=== PATIENT | female | born 2000 | race Caucasian/White ===

== ENCOUNTER 2022-03-10 15:09 | Inpatient (IN) | payer MEDICAID, SELFPAY ==
--- NOTE | ~2022-03-10 | CT_ITS ---
EXAMINATION: CT ABDOMEN AND PELVIS WITH CONTRAST CLINICAL INFORMATION: Right flank pain. COMPARISON: None TECHNIQUE: Multidetector volumetric images were obtained from the superior aspect of the liver through the pubic symphysis following administration 85 mL of Omnipaque 350 intravenous contrast. Sagittal and coronal reformatted images were obtained on the technologist's workstation. Oral contrast: No This CT examination was performed using dose optimization techniques as appropriate, variously including the following: *Automated exposure control *Adjustment of mA and/or kV according to patient size (this includes techniques or standardized protocols for targeted exams where dose is matched to indication/reason for exam; i.e. extremities or head) *Use of iterative reconstruction technique DLP: 613 mGy-cm FINDINGS: LUNG BASES: The visualized lung bases are unremarkable. LIVER, GALLBLADDER, AND BILIARY TREE: The liver is enlarged measuring 21.2 cm in craniocaudal length. Diffuse hepatic hypoattenuation consistent with steatosis. No liver lesion. No morphologic features of cirrhosis. Hepatic and portal veins are patent. The gallbladder is unremarkable with no evidence of radiopaque gallstones, gallbladder wall thickening, or obvious pericholecystic inflammatory changes. PANCREAS: Unremarkable. SPLEEN: Unremarkable. ADRENAL GLANDS: Unremarkable. KIDNEYS AND URETERS: Wedge-shaped areas of hypoattenuation/diminished perfusion in both kidneys involving the left midpole and right mid and lower poles. No discrete renal lesion. Mild bilateral perinephric fat stranding. No perinephric collections. Bilateral renal veins are patent. No hydronephrosis. No radiodense urinary tract calculi. BLADDER: Diffusely thick-walled appearance likely accentuated by incomplete distention. GASTROINTESTINAL TRACT: The small and large bowel are unremarkable. The appendix is unremarkable. No intra-abdominal free air. ABDOMINAL WALL: No significant hernia is appreciated. LYMPH NODES: No lymphadenopathy. VASCULAR: Normal caliber abdominal aorta. Retroaortic left renal vein. PELVIC VISCERA: Retroflexed the uterus. Small amount of low-density free pelvic fluid. 1.6 cm peripherally enhancing crenulated left corpus luteal cyst. OSSEOUS STRUCTURES: No acute fracture or suspicious osseous lesion. CT/CT abdomen pelvis w IV con IMPRESSION: 1. Wedge-shaped areas of decreased perfusion/enhancement of both kidneys consistent with acute focal pyelonephritis/acute lobar nephronia. No well-formed renal abscess identified. 2. Hepatomegaly and hepatic steatosis.
[2022-03-10 15:21] VITALS: BP 127/83; PULSE 115; RESP 20; O2SAT 99; BMI 32.1
[2022-03-10 16:01] LABS: Appearance Urine Turbid; Color Urine Dark Yellow; Glucose Urine UA >=1000 mg/dL (Negative); Leukocyte Esterase Urine Moderate (2+) (Negative); Nitrite Urine Positive (Negative); PH 5.5 (5.0-9.0); Urine Blood Moderate (2+) (Negative); Urine Ketones 80 mg/dL (Negative); Urine Protein 100 (2+) mg/dL (Neg-Trace)
[2022-03-10 16:16] LABS: Bacteria Urine 4+ (None Seen); UACC Culture Trigger YES; WBC Urine >50 /HPF (0-5)
--- NOTE | 2022-03-10 16:37 | ED_ITS ---
HPI - Abdominal Pain General Chief Complaint: Abdominal Pain Stated Complaint: Abdominal Pain ?[facility] Time Seen by Provider: 03/10/22 16:29 Source: patient Mode of arrival: ambulatory Limitations: no limitations History of Present Illness HPI narrative: This is a 21-year-old female past medical history significant for anxiety, presenting to the emergency department complaints of severe right-sided flank pain x2 days progressively worsening. Patient tells me that she is also experiencing urinary frequency, dysuria, again started 2 days ago. She tells me last time she had these symptoms she had a bad UTI. Patient reports that the pain is constant in nature located to her right flank, without radiation, she tells me at times she has intermittent episodes of more severe pain, sharp, stabbing. Vague complaints of nausea. Patient denies fevers, chills, chest pain, shortness of breath, vomiting, abdominal pain, headache, dizziness, vision changes. MD elicited complaint: flank pain Pertinent past history: past UTI Onset (ago): day(s) (2) Pain Consistency: constant Related Data Allergies Allergy/AdvReac Type Severity Reaction Status Date / Time No Known Allergies Allergy Verified 03/10/22 18:32 Review of Systems Review of Systems Constitutional : No Weight loss, No Fever, No Chills, No Fatigue, No Malaise ENT/Mouth : No sore throat, No Rhinorrhea Eyes: No Eye Pain, No Swelling, No Redness Cardiovascular : No Chest Pain, No SOB, No Dyspnea on Exertion, No Orthopnea, No Edema, No Palpitations Respiratory : No Cough, No Sputum, No Wheezing Gastrointestinal : No Nausea, No Vomiting, No Diarrhea, No Constipation, No abdominal Pain, No Hematochezia, No Melena Genitourinary : + Dysuria, + Urinary Frequency, No Hematuria, Musculoskeletal : No joint pain, No Myalgias, No Joint Swelling Skin : No Skin Lesions, No rash Neuro : No Weakness, No Numbness, No Dizziness, No Headache Psych : No Anxiety/Panic, No Depression All other systems reviewed and are negative Yes all other systems are reviewed and are negative [facility] Past Medical History Attestation statement: The following information was validated with the patient. Source: old records reviewed and nursing notes reviewed Medical History (Updated 03/10/22 @ 18:37 by Kate Hartmann RN) No known health problems Social History Social History Patient Tobacco Use Status: Never used Tobacco Use of substances other than those prescribed or required for medical reasons: No Advance Directives: No Advance Directives Information Provided: No Patient : No Physical Exam ED Vital Signs: Vital Signs - 24 hr 03/10/22 15:21 03/10/22 18:35 Temperature 100.4 F Pulse Rate 115 H 120 H Respiratory Rate 20 16 Blood Pressure 127/83 139/79 Pulse Oximetry 99 99 Oxygen Delivery Method Room Air Room Air BMI result Body Mass Index 32.1 vss Appearance: Alert.? Oriented X3.? No acute distress.? Head: Normocephalic, atraumatic, no step-offs or deformities Eyes: Pupils equal, round and reactive to light.? ENT: Pharynx normal.? Neck: Normal inspection.? Neck supple.? CVS: Normal heart rate and rhythm.? Pulses normal.? Respiratory: No respiratory distress.? Breath sounds normal.? Abdomen: Soft and nontender.? Skin: Skin warm and dry.? Normal skin color.? Normal skin turgor.? Extremities: No lower extremity edema.? No calf ttp. 5/5 strength to bilateral upper and lower extremities Back: + right sided cva tenderness Neuro: Oriented X 3.? No motor deficit.? No sensory deficit. CN 2-12 intact Course Reevaluation(s) Reevaluation #1: Patient noted to have a leukocytosis, likely secondary to UTI or pyelonephritis. I do not suspect sepsis. Patient noted to have a urinary tract infection, urine positive for blood, nitrates, leukocyte esterases. Pending CT of the abdomen and pelvis to rule out obstructing uropathy. And pyelonephritis. Time: 18:28 Reevaluation #2: Patient now tachycardic and febrile, at this time infection suspected will obtain blood cultures, lactic acid and give levofloxacin for antibiotic coverage. Time: 18:42 Reevaluation #3: Patient's lactic acid is negative. CT with evidence of pyelonephritis. At this time patient will be admitted to the hospitalist team for further evaluation and treatment. Time: 19:47 MDM - Abdominal Pain MDM Narrative Medical decision making narrative: 1630 21-year-old female presents with 2 days of urinary frequency, dysuria, right- sided flank pain. Reports similar symptoms in the past when she had a UTI. Physical examination significant for right-sided CVA tenderness, regular rate and rhythm, lungs clear, abdomen soft nontender nondistended, neuro nonfocal. Vital signs stable. Concerns for pyelo or urinary tract infection. No midline tenderness, unlikely epidural abscess or cauda equina. Will rule out obstructing uropathy. Plan at this time is labs, urine, CT of the abdomen and pelvis Medical Records Attestation: I reviewed the patient's medical records. Lab Data Attestation: I reviewed the patient's lab results. Result diagrams: 03/10/22 18:10 03/10/22 18:10 Labs: Lab Results 03/10/22 03/10/22 03/10/22 Range/Units 15:45 18:10 18:10 WBC 15.7 H (4.8-10.8) X10*3/uL RBC 4.86 (4.20-5.50) X10*6/uL Hgb 15.4 (12.0-16.0) g/dl Hct 44.6 (37.0-47.0) % MCV 91.8 (80.0-98.0) fL MCH 31.7 (27.0-33.0) pg MCHC 34.5 (31.0-35.0) g/dl RDW 11.8 (11.0-16.0) % Plt Count 212 (160-400) X10*3/uL MPV 9.6 (9.4-12.3) fL Immature Gran % (Auto) 0.6 H (0.0-0.4) % Neut % (Auto) 75.9 H (45-73) % Lymph % (Auto) 11.7 L (20-40) % [place] % (Auto) 11.1 H (2-11) % Eos % (Auto) 0.3 (0-4) % Baso % (Auto) 0.4 (0-2) % Lymph # (Auto) 1.8 (1.2-4.9) X10*3/uL [place] # (Auto) 1.8 H (0.1-1.2) X10*3/uL Eos # (Auto) 0.0 (0.0-0.4) X10*3/uL Baso # (Auto) 0.1 (0.0-0.2) X10*3/uL Abs Immat Gran (auto) 0.09 H (0.00-0.03) X10*3/uL Absolute Neuts (auto) 11.9 H (2.0-8.3) x10*3/uL Absolute Nucleated RBC 0.000 (0.0-0.012) X10*3/uL Nucleated RBC % (auto) 0.0 (0.0-0.2) /100WBC Smear Tech's Comments VERIFIED Sodium 136 (135-145) mmol/L Potassium 3.7 (3.3-5.1) mmol/L Chloride 96 (96-108) mmol/L Carbon Dioxide 22 (22-29) mmol/L Anion Gap 22 H (12-20) BUN 8 L (9-16) mg/dL Creatinine 0.97 (0.5-1.4) mg/dL Estim Creat Clear Calc 86.9 Estimated GFR > 60 Random Glucose 269 H (60-115) mg/dL Lactic Acid (0.5-2.0) mmol/L Calcium 9.6 (8.4-10.2) mg/dL Magnesium 1.7 (1.6-2.6) mg/dL Total Bilirubin 1.8 H (0.0-1.0) mg/dL AST 30 (5-31) U/L ALT 50 H (0-31) U/L Alkaline Phosphatase 86 (39-117) U/L Total Protein 7.7 (6.5-8.0) g/dL Albumin 4.6 (3.5-5.0) g/dL Lipase 12 (8-78) U/L Beta HCG, Quant mIU/mL Urine Color Dark Yellow Urine Appearance Turbid Urine pH 5.5 (5.0-9.0) Ur Specific [place] 1.020 (1.005-1.025) Urine Protein 100 (2+) H (Neg-Trace) mg/dL Urine Glucose (UA) >=1000 H (Negative) mg/dL Urine Ketones 80 (Negative) mg/dL Urine Blood Moderate (2+) H (Negative) Urine Nitrite Positive H (Negative) Ur Leukocyte Esterase Moderate (2+) H (Negative) Urine RBC 3-5 H (0-2) /HPF Urine WBC >50 H (0-5) /HPF Ur Squamous Epith Cells 6-10 (0-2) /HPF Urine Bacteria 4+ (None Seen) Hyaline Casts 3-5 (0-2) /LPF COVID-19 (EZEKIEL) (Negative) COVID-19 Clin Com 03/10/22 03/10/22 03/10/22 Range/Units 18:10 18:10 19:18 WBC (4.8-10.8) X10*3/uL RBC (4.20-5.50) X10*6/uL Hgb (12.0-16.0) g/dl Hct (37.0-47.0) % MCV (80.0-98.0) fL MCH (27.0-33.0) pg MCHC (31.0-35.0) g/dl RDW (11.0-16.0) % Plt Count (160-400) X10*3/uL MPV (9.4-12.3) fL Immature Gran % (Auto) (0.0-0.4) % Neut % (Auto) (45-73) % Lymph % (Auto) (20-40) % [place] % (Auto) (2-11) % Eos % (Auto) (0-4) % Baso % (Auto) (0-2) % Lymph # (Auto) (1.2-4.9) X10*3/uL [place] # (Auto) (0.1-1.2) X10*3/uL Eos # (Auto) (0.0-0.4) X10*3/uL Baso # (Auto) (0.0-0.2) X10*3/uL Abs Immat Gran (auto) (0.00-0.03) X10*3/uL Absolute Neuts (auto) (2.0-8.3) x10*3/uL Absolute Nucleated RBC (0.0-0.012) X10*3/uL Nucleated RBC % (auto) (0.0-0.2) /100WBC Smear Tech's Comments Sodium (135-145) mmol/L Potassium (3.3-5.1) mmol/L Chloride (96-108) mmol/L Carbon Dioxide (22-29) mmol/L Anion Gap (12-20) BUN (9-16) mg/dL Creatinine (0.5-1.4) mg/dL Estim Creat Clear Calc Estimated GFR Random Glucose (60-115) mg/dL Lactic Acid 1.6 (0.5-2.0) mmol/L Calcium (8.4-10.2) mg/dL Magnesium (1.6-2.6) mg/dL Total Bilirubin (0.0-1.0) mg/dL AST (5-31) U/L ALT (0-31) U/L Alkaline Phosphatase (39-117) U/L Total Protein (6.5-8.0) g/dL Albumin (3.5-5.0) g/dL Lipase (8-78) U/L Beta HCG, Quant < 2 mIU/mL Urine Color Urine Appearance Urine pH (5.0-9.0) Ur Specific [place] (1.005-1.025) Urine Protein (Neg-Trace) mg/dL Urine Glucose (UA) (Negative) mg/dL Urine Ketones (Negative) mg/dL Urine Blood (Negative) Urine Nitrite (Negative) Ur Leukocyte Esterase (Negative) Urine RBC (0-2) /HPF Urine WBC (0-5) /HPF Ur Squamous Epith Cells (0-2) /HPF Urine Bacteria (None Seen) Hyaline Casts (0-2) /LPF COVID-19 (EZEKIEL) Negative (Negative) COVID-19 Clin Com See Note Critical Care Time Critical Care Time Critical Care Time: No Discharge Plan Discharge Clinical Impression: Pyelonephritis Patient Disposition: Admitted As Inpatient Instructions: Kidney Infection (ED), Acute Low Back Pain (ED) Referrals: Physician,Unknown J [Primary Care Provider] - 2 days
[2022-03-10] MEDS: LORazepam 0.5 MG TABLET PO (16:59)
--- NOTE | 2022-03-10 17:02 | PC.NURSE ---
PT TEARFUL, VERY ANXIOUS ABOUT NEEDLESTICKS. PA AWARE. WILL RE ATTEMPT AFTER EFFECTS OF PO ATIVAN
[2022-03-10 18:21] LABS: Basophils Absolute Auto 0.1 X10*3/uL (0.0-0.2); Basophils Percent Auto 0.4 % (0-2); Eosinophils Percent Auto 0.3 % (0-4); Hematocrit 44.6 % (37.0-47.0); Hemoglobin 15.4 g/dl (12.0-16.0); Imm Gran Abs Auto 0.09 X10*3/uL (0.00-0.03); Imm Gran Pct Auto 0.6 % (0.0-0.4); Lymphocytes Absolute Auto 1.8 X10*3/uL (1.2-4.9); Lymphocytes Percent Auto 11.7 % (20-40); MANUAL DIFF FLAG SCAN; Mean Corpuscular HGB Conc 34.5 g/dl (31.0-35.0); Mean Corpuscular Hemoglobin 31.7 pg (27.0-33.0); Mean Corpuscular Volume 91.8 fL (80.0-98.0); Mean Platelet Volume 9.6 fL (9.4-12.3); Monocytes Absolute Auto 1.8 X10*3/uL (0.1-1.2); Monocytes Percent Auto 11.1 % (2-11); Neutrophils Absolute Auto 11.9 x10*3/uL (2.0-8.3); Neutrophils Percent Auto 75.9 % (45-73); Platelet Count 212 X10*3/uL (160-400); Red Blood Count 4.86 X10*6/uL (4.20-5.50); Red Cell Distribution Width 11.8 % (11.0-16.0); SCAN SMEAR FLAG 1; White Blood Count 15.7 X10*3/uL (4.8-10.8)
[2022-03-10] MEDS: 0.9 % Sodium Chloride 1,000 ML 999 ML IV ×2 (18:33→20:19)
[2022-03-10] MEDS: Ketorolac Tromethamine 15 MG/ML VIAL 30 MG IVPUSH (18:33)
[2022-03-10] MEDS: ondansetron HCL 4 MG/2 ML VIAL IVPUSH (18:33)
[2022-03-10 18:35] VITALS: BP 139/79; PULSE 120; RESP 16; TEMP 38; O2SAT 99
[2022-03-10 18:36] LABS: COVID-19 Test Negative (Negative)
[2022-03-10 18:43] LABS: Alanine Aminotransferase 50 U/L (0-31); Albumin Level 4.6 g/dL (3.5-5.0); Alkaline Phosphatase 86 U/L (39-117); Anion Gap 22 (12-20); Aspartate Amino Transferase 30 U/L (5-31); Bilirubin Total 1.8 mg/dL (0.0-1.0); Blood Urea Nitrogen 8 mg/dL (9-16); Calcium 9.6 mg/dL (8.4-10.2); Carbon Dioxide 22 mmol/L (22-29); Chloride 96 mmol/L (96-108); Creatinine Clr Calc Pharmacy 86.9; Estimated Glomerular Filt Rate > 60; Glucose Random 269 mg/dL (60-115); Lipase 12 U/L (8-78); Magnesium 1.7 mg/dL (1.6-2.6); Potassium 3.7 mmol/L (3.3-5.1); Sodium 136 mmol/L (135-145); Total Protein 7.7 g/dL (6.5-8.0)
[2022-03-10 18:47] LABS: HCG Quantitative < 2 mIU/mL
[2022-03-10 18:52] LABS: SLIDE REVIEW VERIFIED
[2022-03-10] MEDS: iohexoL 350 MG/ML 100 ML INFUS..BTL IV (19:11)
[2022-03-10] MEDS: levoFLOXacin/D5W 750 MG/150 ML PIGGYBACK 100 MG IV (19:29)
[2022-03-10] MEDS: Acetaminophen 325 MG TABLET 650 MG PO (19:29)
[2022-03-10 19:37] LABS: Lactic Acid 1.6 mmol/L (0.5-2.0)
--- NOTE | 2022-03-10 19:56 | PHA.MEDREC ---
MED REC COMPLETE, PATIENT IS NOT ON ANY MEDICATIONS Pharmacy Consult ? Medication Reconciliation Pharmacy has completed the medication reconciliation.
[2022-03-10] MEDS: Morphine Sulfate 4 MG/ML CARTRIDGE IVPUSH (20:19)
--- NOTE | 2022-03-10 20:20 | PM.IMHP ---
History of Present Illness Date of Service: 03/10/22 Chief Complaint: left kidney pain This is a 21-year-old female with past medical history of asthma presents to the hospital with complaints of left kidney pain. Patient reports that her symptoms started about 3 days ago, associated with urinary frequency, no dysuria or urgency. She has also had chills that started today, she has had nausea and vomiting. No fever, no chest pain, no shortness of breath, no wheezing, no abdominal pain, no diarrhea constipation, and no lower extremity edema. No headache or change in vision, no numbness tingling or weakness. On arrival to the ED patient hemodynamically stable with a heart rate of 115 otherwise vitals within normal range Labs are significant for WBC count of 15.7, otherwise unremarkable UA is positive for nitrites, leukocyte Estrace, WBC CT of the abdomen shows acute pyelonephritis Patient started on IV antibiotics and will be admitted for further management Review of Systems Review of Systems: Yes all other systems are reviewed and are negative PENDING SALE TO [facility] Medical History (Updated 03/10/22 @ 20:36 by Emmett Estrella MD) Asthma Family History (Updated 03/10/22 @ 20:24 by Emmett Estrella MD) Other No family history of coronary artery disease Surgical History (Updated 03/10/22 @ 20:24 by Emmett Estrella MD) No pertinent past surgical history Social History (Updated 03/10/22 @ 20:24 by Emmett Estrella MD) Alcohol intake: never Patient Tobacco Use Status: Never used Tobacco Use of substances other than those prescribed or required for medical reasons: No Advance Directives: No Advance Directives Information Provided: No Patient : No Meds Allergies Allergy/AdvReac Type Severity Reaction Status Date / Time No Known Allergies Allergy Verified 03/10/22 18:32 Active Medications: Current Medications Sodium Chloride (Ns) 1,000 mls @ 999 mls/hr IV .Q1H1M STEFFEN Stop: 03/10/22 21:00 Last Admin: 03/10/22 20:19 Dose: 999 mls/hr Pharmacy Consult (Consult Rx Perform Med Rec) 1 each MISCELLANE ONCE PRN PRN Reason: Consult order Home Medications Medication Instructions Recorded Confirmed Last Taken Type No Known Home Meds 03/10/22 03/10/22 Unknown History Physical Exam Vital Signs and Narrative: Vital Signs: Last Vital Signs Temp 100.4 F 03/10/22 18:35 Pulse 120 H 03/10/22 18:35 Resp 16 03/10/22 18:35 BP 139/79 03/10/22 18:35 Pulse Ox 99 03/10/22 18:35 O2 Del Method 03/10/22 18:35 BMI result Body Mass Index 32.1 Const: Other: Patient appears anxious, ill, and is crying General: cooperative and no acute distress Orientation/consciousness: patient oriented x3 Eyes: General: appearance normal, both eyes and all related structures Resp: Effort & Inspection: normal respiratory effort Auscultation: clear to auscultation bilaterally Cardio: Rate: regular rate Rhythm: regular rhythm GI: Palpation (GI): Soft to palpation Auscultation: normal bowel sounds : Other: Left CVA tenderness Skin: General skin exam: no rashes or lesions noted Neuro: General: patient oriented x3 Cognition (Neuro): normal cognition Extrem: General: Yes normal to inspection and Yes no pedal edema Results Labs CBC and Chem 7: 03/10/22 18:10 03/10/22 18:10 Labs: Laboratory Results - last 24 hr 03/10/22 03/10/22 03/10/22 15:45 18:10 18:10 MCV 91.8 MCH 31.7 MCHC 34.5 RDW 11.8 Plt Count 212 MPV 9.6 Immature Gran % (Auto) 0.6 H Neut % (Auto) 75.9 H Lymph % (Auto) 11.7 L Sac % (Auto) 11.1 H Eos % (Auto) 0.3 Baso % (Auto) 0.4 Lymph # (Auto) 1.8 Sac # (Auto) 1.8 H Eos # (Auto) 0.0 Baso # (Auto) 0.1 Abs Immat Gran (auto) 0.09 H Absolute Neuts (auto) 11.9 H Absolute Nucleated RBC 0.000 Nucleated RBC % (auto) 0.0 Smear Tech's Comments VERIFIED Anion Gap 22 H Estim Creat Clear Calc 86.9 Estimated GFR > 60 Random Glucose 269 H Lactic Acid Calcium 9.6 Magnesium 1.7 Total Bilirubin 1.8 H AST 30 ALT 50 H Alkaline Phosphatase 86 Total Protein 7.7 Albumin 4.6 Lipase 12 Beta HCG, Quant Urine Color Dark Yellow Urine Appearance Turbid Urine pH 5.5 Ur Specific [place] 1.020 Urine Protein 100 (2+) H Urine Glucose (UA) >=1000 H Urine Ketones 80 Urine Blood Moderate (2+) H Urine Nitrite Positive H Ur Leukocyte Esterase Moderate (2+) H Urine RBC 3-5 H Urine WBC >50 H Ur Squamous Epith Cells 6-10 Urine Bacteria 4+ Hyaline Casts 3-5 COVID-19 (EZEKIEL) COVID-19 Clin Com 03/10/22 03/10/22 03/10/22 18:10 18:10 19:18 MCV MCH MCHC RDW Plt Count MPV Immature Gran % (Auto) Neut % (Auto) Lymph % (Auto) Sac % (Auto) Eos % (Auto) Baso % (Auto) Lymph # (Auto) Sac # (Auto) Eos # (Auto) Baso # (Auto) Abs Immat Gran (auto) Absolute Neuts (auto) Absolute Nucleated RBC Nucleated RBC % (auto) Smear Tech's Comments Anion Gap Estim Creat Clear Calc Estimated GFR Random Glucose Lactic Acid 1.6 Calcium Magnesium Total Bilirubin AST ALT Alkaline Phosphatase Total Protein Albumin Lipase Beta HCG, Quant < 2 Urine Color Urine Appearance Urine pH Ur Specific [place] Urine Protein Urine Glucose (UA) Urine Ketones Urine Blood Urine Nitrite Ur Leukocyte Esterase Urine RBC Urine WBC Ur Squamous Epith Cells Urine Bacteria Hyaline Casts COVID-19 (EZEKIEL) Negative COVID-19 Clin Com See Note Imaging Radiologist's Impressions: Impressions Abdomen/Pelvis CT 03/10/22 19:10 IMPRESSION: 1. Wedge-shaped areas of decreased perfusion/enhancement of both kidneys consistent with acute focal pyelonephritis/acute lobar nephronia. No well-formed renal abscess identified. 2. Hepatomegaly and hepatic steatosis. Assessment and Plan (1) Pyelonephritis: Status: Acute (2) Sepsis: Status: Acute Plan 21-year-old with past medical history of asthma presents to the hospital with complaints of left kidney pain found to have acute pyelonephritis # sepsis - secondary to pyelonephritis/UTI - has tachycardia, as well as leukocytosis - treat with IV antibiotic - follow cultures # acute pyelonephritis - CVA tenderness, CT evidence of pyelonephritis, UA positive - will treat with IV antibiotics - follow cultures - IV fluids # asthma - no exacerbation - monitor symptoms DVT prophylaxis: Lovenox Given patient's nausea and vomiting, not tolerating p.o., as well as sepsis and need for IV antibiotics patient will require a minimum 2 night hospital stay for further management and monitoring Quality Stroke Does the patient have a stroke diagnosis?: No VTE Prior VTE?: No VTE Risk Level:: Medical - moderate - high VTE Device Contraindication: Treatment Not Indicated VTE Drug Contraindication: N/A - Med Ordered
[2022-03-10 20:24] VITALS: BP 120/72; PULSE 116; RESP 16; TEMP 37.1; O2SAT 95
[2022-03-10] MEDS: Prochlorperazine Edisylate 10 MG/2 ML VIAL 5 MG IVPUSH (21:22)
[2022-03-10] MEDS: cefTRIAXone sodium 1 GM in 0.9 % Sodium Chloride 50 ML IV (21:26)
[2022-03-10 23:51] VITALS: BP 126/77; PULSE 135; RESP 20; TEMP 36.4; O2SAT 99
--- NOTE | 2022-03-11 00:21 | PC.NURSE ---
Assumed care of pt. at 2300. Pt. resting in bed. Pulse rate is elevated, which, is her baseline for this hospital stay. Pt. still feeling slightly nauseous, however, reports that this is significantly better than earlier today. Will continue to monitor.
[2022-03-11 01:34] VITALS: TEMP 38.2
[2022-03-11] MEDS: Acetaminophen 325 MG TABLET 650 MG PO ×3 (01:38→21:34)
[2022-03-11] MEDS: Lactated Ringers 1,000 ML 999 ML IV (01:49)
[2022-03-11] MEDS: 0.9 % Sodium Chloride Flush 3 ML SYRINGE IVFLUSH (01:50)
--- NOTE | 2022-03-11 01:51 | PC.NURSE ---
Pt. pulse continue to be elevating, reaching 150 at one point. notified and order placed for additional fluid. 1L of LR administered per SEP. Pt. medicated with tylenol for low-grade fever. Pt. also reports a high amount of anxiety as she is fearful of hospitals. Will continue to monitor.
[2022-03-11 02:45] LABS: Lactic Acid 1.4 mmol/L (0.5-2.0)
[2022-03-11 05:38] VITALS: BP 90/51; PULSE 95; RESP 27; O2SAT 95
[2022-03-11 06:09] VITALS: BP 107/63; PULSE 104; RESP 21; O2SAT 97
--- NOTE | 2022-03-11 06:10 | PC.NURSE ---
Pt. reports no pain this morning and reports she was able to get some sleep. Resting in bed with no apparent distress.
[2022-03-11 06:33] LABS: Basophils Percent Auto 0.2 % (0-2); Eosinophils Percent Auto 0.1 % (0-4); Hematocrit 35.7 % (37.0-47.0); Hemoglobin 12.2 g/dl (12.0-16.0); Imm Gran Abs Auto 0.13 X10*3/uL (0.00-0.03); Lymphocytes Absolute Auto 1.3 X10*3/uL (1.2-4.9); Lymphocytes Percent Auto 9.5 % (20-40); MANUAL DIFF FLAG SCAN; Mean Corpuscular HGB Conc 34.2 g/dl (31.0-35.0); Mean Corpuscular Hemoglobin 31.5 pg (27.0-33.0); Mean Corpuscular Volume 92.2 fL (80.0-98.0); Mean Platelet Volume 10.1 fL (9.4-12.3); Monocytes Absolute Auto 1.6 X10*3/uL (0.1-1.2); Monocytes Percent Auto 12.1 % (2-11); Neutrophils Absolute Auto 10.2 x10*3/uL (2.0-8.3); Neutrophils Percent Auto 77.1 % (45-73); Platelet Count 151 X10*3/uL (160-400); Red Blood Count 3.87 X10*6/uL (4.20-5.50); Red Cell Distribution Width 11.8 % (11.0-16.0); SCAN SMEAR FLAG 1; White Blood Count 13.2 X10*3/uL (4.8-10.8)
[2022-03-11 06:49] LABS: Anion Gap 16 (12-20); Blood Urea Nitrogen 7 mg/dL (9-16); Calcium 8.1 mg/dL (8.4-10.2); Carbon Dioxide 19 mmol/L (22-29); Chloride 104 mmol/L (96-108); Estimated Glomerular Filt Rate > 60; Glucose Random 345 mg/dL (60-115); Potassium 4.3 mmol/L (3.3-5.1); Sodium 135 mmol/L (135-145)
[2022-03-11 07:09] LABS: SLIDE REVIEW VERIFIED
--- NOTE | 2022-03-11 09:08 | PC.NURSE ---
pt asleep, this investment underwriter did not wake pt. pt assigned a room 363, this investment underwriter contacted receiving RN x2 awaiting response.
--- NOTE | 2022-03-11 09:23 | P.PNIM_ITS ---
Subjective Subjective Date of Service: 03/11/22 Interval History: Followed for pyelonephritis complaining of persistent left-sided back pain with no radiation, better since admission denies fever chills tolerating diet. Review of Systems MANUFACTURING INTERN no headache no dizziness CVS no chest pain respiratory no cough, no shortness of breath Review of Systems: Yes all other systems are reviewed and are negative Physical Exam Vital Signs: Vital Signs: Last Vital Signs Temp 100.7 F H 03/11/22 01:34 Pulse 104 H 03/11/22 06:09 Resp 21 H 03/11/22 06:09 BP 107/63 03/11/22 06:09 Pulse Ox 97 03/11/22 06:09 O2 Del Method 03/11/22 06:09 BMI result Body Mass Index 32.1 Const: Other: General awake alert x3, no acute distress. Neck no JVD. CVS regular rate rhythm, Respiratory lungs clear to auscultation, no respiratory distress, no wheeze, no rhonchi. Gastrointestinal abdomen soft, nontender, bowel sounds audible, no guarding , no rigidity. Extremities no edema. back left CVA tenderness Neuro nonfocal Skin no rash psych appropriate affect Objective Data Active Medications Acetaminophen (Acetaminophen 325 Mg Tablet) 650 mg PO Q6H PRN PRN Reason: Pain, Mild (Pain Scale 1-3) Last Admin: 03/11/22 01:38 Dose: 650 mg Documented By: STEVE Docusate Sodium (Docusate Sodium 100 Mg Capsule) 100 mg PO DAILY PRN PRN Reason: Constipation Enoxaparin Sodium (Enoxaparin Sodium 40 Mg/0.4 Ml Syringe) 40 mg SUBCUT Q24H [facility] Last Admin: 03/10/22 21:30 Dose: Not Given Documented By: ALONZO Non-Admin Reason: Patient Refused Ceftriaxone Sodium 1 gm/ (Sodium Chloride) 50 mls @ 100 mls/hr IV Q24H [facility] Last Infusion: 03/10/22 22:53 Dose: 0 mls/hr Documented By: ALONZO Morphine Sulfate (Morphine Sulfate 4 Mg/Ml Cartridge) 4 mg IVPUSH Q4H PRN; Protocol PRN Reason: Pain, Severe (Pain Scale 7-10) Pharmacy Consult (Consult Rx Perform Med Rec) 1 each MISCELLANE ONCE PRN PRN Reason: Consult order Prochlorperazine Edisylate (Prochlorperazine Edisylate 10 Mg/2 Ml Vial) 5 mg IVPUSH Q4H PRN PRN Reason: Nausea and Vomiting Last Admin: 03/10/22 21:22 Dose: 5 mg Documented By: ALONZO Sodium Chloride (0.9 % Sodium Chloride Flush 3 Ml Syringe) 3 ml IVFLUSH QSHIFT STEFFEN Last Admin: 03/11/22 07:35 Dose: Not Given Documented By: ZOYA Non-Admin Reason: Patient Asleep Labs CBC & Chem 7: 03/11/22 06:08 03/11/22 06:08 Labs: Laboratory Results - last 24 hr 03/10/22 03/10/22 03/10/22 15:45 18:10 18:10 MCV 91.8 MCH 31.7 MCHC 34.5 RDW 11.8 Plt Count 212 MPV 9.6 Immature Gran % (Auto) 0.6 H Neut % (Auto) 75.9 H Lymph % (Auto) 11.7 L [place] % (Auto) 11.1 H Eos % (Auto) 0.3 Baso % (Auto) 0.4 Lymph # (Auto) 1.8 [place] # (Auto) 1.8 H Eos # (Auto) 0.0 Baso # (Auto) 0.1 Abs Immat Gran (auto) 0.09 H Absolute Neuts (auto) 11.9 H Absolute Nucleated RBC 0.000 Nucleated RBC % (auto) 0.0 Smear Tech's Comments VERIFIED Anion Gap 22 H Estim Creat Clear Calc 86.9 Estimated GFR > 60 Random Glucose 269 H Lactic Acid Calcium 9.6 Magnesium 1.7 Total Bilirubin 1.8 H AST 30 ALT 50 H Alkaline Phosphatase 86 Total Protein 7.7 Albumin 4.6 Lipase 12 Beta HCG, Quant Urine Color Dark Yellow Urine Appearance Turbid Urine pH 5.5 Ur Specific [place] 1.020 Urine Protein 100 (2+) H Urine Glucose (UA) >=1000 H Urine Ketones 80 Urine Blood Moderate (2+) H Urine Nitrite Positive H Ur Leukocyte Esterase Moderate (2+) H Urine RBC 3-5 H Urine WBC >50 H Ur Squamous Epith Cells 6-10 Urine Bacteria 4+ Hyaline Casts 3-5 COVID-19 (EZEKIEL) COVID-19 Clin Com 03/10/22 03/10/22 03/10/22 18:10 18:10 19:18 MCV MCH MCHC RDW Plt Count MPV Immature Gran % (Auto) Neut % (Auto) Lymph % (Auto) [place] % (Auto) Eos % (Auto) Baso % (Auto) Lymph # (Auto) [place] # (Auto) Eos # (Auto) Baso # (Auto) Abs Immat Gran (auto) Absolute Neuts (auto) Absolute Nucleated RBC Nucleated RBC % (auto) Smear Tech's Comments Anion Gap Estim Creat Clear Calc Estimated GFR Random Glucose Lactic Acid 1.6 Calcium Magnesium Total Bilirubin AST ALT Alkaline Phosphatase Total Protein Albumin Lipase Beta HCG, Quant < 2 Urine Color Urine Appearance Urine pH Ur Specific [place] Urine Protein Urine Glucose (UA) Urine Ketones Urine Blood Urine Nitrite Ur Leukocyte Esterase Urine RBC Urine WBC Ur Squamous Epith Cells Urine Bacteria Hyaline Casts COVID-19 (EZEKIEL) Negative COVID-19 Clin Com See Note 03/11/22 03/11/22 03/11/22 02:30 06:08 06:08 MCV 92.2 MCH 31.5 MCHC 34.2 RDW 11.8 Plt Count 151 L D MPV 10.1 Immature Gran % (Auto) 1.0 H Neut % (Auto) 77.1 H Lymph % (Auto) 9.5 L [place] % (Auto) 12.1 H Eos % (Auto) 0.1 Baso % (Auto) 0.2 Lymph # (Auto) 1.3 [place] # (Auto) 1.6 H Eos # (Auto) 0.0 Baso # (Auto) 0.0 Abs Immat Gran (auto) 0.13 H Absolute Neuts (auto) 10.2 H Absolute Nucleated RBC 0.000 Nucleated RBC % (auto) 0.0 Smear Tech's Comments VERIFIED Anion Gap 16 Estim Creat Clear Calc 98.0 Estimated GFR > 60 Random Glucose 345 H Lactic Acid 1.4 Calcium 8.1 L D Magnesium Total Bilirubin AST ALT Alkaline Phosphatase Total Protein Albumin Lipase Beta HCG, Quant Urine Color Urine Appearance Urine pH Ur Specific [place] Urine Protein Urine Glucose (UA) Urine Ketones Urine Blood Urine Nitrite Ur Leukocyte Esterase Urine RBC Urine WBC Ur Squamous Epith Cells Urine Bacteria Hyaline Casts COVID-19 (EZEKIEL) COVID-19 Clin Com Microbiology Microbiology Results: Microbiology 03/10/22 15:45 Urine Culture - Preliminary Urine clean catch - Urine cao top Gram negative adonay Assessment and Plan (1) Sepsis: Status: Acute (2) Pyelonephritis: Status: Acute (3) Hyperglycemia, unspecified: Status: Acute Plan 21-year-old with past medical history of asthma presents to the hospital with complaints of left kidney pain found to have acute pyelonephritis # sepsis due to acute pyelonephritis - met sepsis criteria due to tachycardia and leukocytosis, persistent tachycardia, tachypnea, WBC trending down continue IV ceftriaxone day 2 urine culture growing Gram-negative adonay, blood cultures x2 pending # hyperglycemia blood sugars greater than 300 no history of diabetes will check hemoglobin A1c, average blood sugars not on D5W # asthma mild intermittent - no exacerbation - monitor symptoms DVT prophylaxis: Lovenox patient will need continued continued in patient's stay due to acute pyelonephritis / sepsis requiring antibiotic waiting for urine and blood cultures Quality Stroke Does the patient have a stroke diagnosis?: No VTE Prior VTE?: No VTE Risk Level:: Medical - moderate - high VTE Device Contraindication: Treatment Not Indicated VTE Drug Contraindication: N/A - Med Ordered
--- NOTE | 2022-03-11 09:28 | PC.NURSE ---
nurse to nurse report given to LI Medina. pt will be transferred to room 363 by transporter. pt aware of plan.
--- NOTE | 2022-03-11 09:29 | MHC.CM.PN ---
Patient lives in a house with her Parents and she is functionally independent. Home/no services is the goal and CM has initiated and will follow for dc planning.PCP is a new PCP for Patient from [facility] and Patient has received no Covid vax.
[2022-03-11 10:02] VITALS: BP 124/67; PULSE 98; RESP 18; TEMP 36.6; O2SAT 98
[2022-03-11 10:07] LABS: Glucose, Whole Blood 251 mg/dL (60-115)
[2022-03-11] MEDS: 0.9 % Sodium Chloride 1,000 ML 125 ML IVCONT ×2 (10:46→18:56)
[2022-03-11 16:00] VITALS: BP 120/66; PULSE 95; RESP 18; TEMP 36.3; O2SAT 98
[2022-03-11 20:00] VITALS: BP 127/81; PULSE 109; RESP 18; TEMP 36.6; O2SAT 98
[2022-03-11 20:30] LABS: Glucose, Whole Blood 242 mg/dL (60-115)
[2022-03-11] MEDS: cefTRIAXone sodium 1 GM in 0.9 % Sodium Chloride 50 ML IV (21:18)
--- NOTE | 2022-03-11 21:24 | PC.NURSE ---
Pt refused Lovenox,risk of DVT explained,encouraged activity,Dr. Estrella notified
[2022-03-12] VITALS (7 sets, daily range): BP systolic 124–142; BP diastolic 71–98; PULSE 86–110; RESP 16–18; TEMP 36.1–37; O2SAT 96–99
[2022-03-12] MEDS: Acetaminophen 325 MG TABLET 650 MG PO ×2 (09:49→16:54)
[2022-03-12] MEDS: 0.9 % Sodium Chloride Flush 3 ML SYRINGE IVFLUSH ×3 (09:52→23:55)
--- NOTE | 2022-03-12 10:25 | PC.NURSE ---
came out of room, and said that patient was hysterical crying because told her she was going to have to have blood sugars done. She is deathly afraid of needles. I went in and tried to console her, I talked to her about the importance of having her blood sugar done. I stayed with her for 30 minutes, trying to calm her down. I told her a sole stapler welt will come and talk to her and that oral hyperglycemic medication is not as affective as the injection. I also told her that we would not do anything she said she did not want. She was given 2 tylenol for a headache and calmed down. She is resting with the lights out when I left.
[2022-03-12] MEDS: Prochlorperazine Edisylate 10 MG/2 ML VIAL 5 MG IVPUSH (11:16)
--- NOTE | 2022-03-12 16:04 | HO.PM.IMPN ---
Subjective Subjective Date of Service: 03/12/22 Interval History: refusing blood draw due to fear of needles, patient is hysterical and crying, was told to be prediabetic couple years ago, blood sugar noted to be around 250, back pain is better no overnight fevers, no chills is nauseous and throwing due to crying and anxiety. Review of Systems Review of Systems: Yes all other systems are reviewed and are negative Physical Exam Vital Signs: Vital Signs: Last Vital Signs Temp 98.3 F 03/12/22 15:13 Pulse 98 03/12/22 15:13 Resp 18 03/12/22 15:13 BP 139/93 H 03/12/22 15:13 Pulse Ox 99 03/12/22 15:13 O2 Del Method 03/12/22 15:13 BMI result Body Mass Index 32.1 Const: Other: General? awake alert x3, In distress due to fear of needles? Neck no JVD. CVS? regular rate rhythm, Respiratory lungs clear to auscultation, no respiratory distress, no wheeze, no rhonchi. Gastrointestinal abdomen soft, nontender, bowel sounds audible, no guarding , no rigidity. Extremities no? edema. back no CVA tenderness Neuro nonfocal Skin no rash psych anxious Objective Data Active Medications Acetaminophen (Acetaminophen 325 Mg Tablet) 650 mg PO Q6H PRN PRN Reason: Pain, Mild (Pain Scale 1-3) Last Admin: 03/12/22 09:49 Dose: 650 mg Documented By: RAFI Dextrose (Dextrose 50 % 25 Gm/50 Ml Syringe) 25 gm IVPUSH Q15M PRN; Protocol PRN Reason: per Hypoglycemia Standing Ord. Docusate Sodium (Docusate Sodium 100 Mg Capsule) 100 mg PO DAILY PRN PRN Reason: Constipation Enoxaparin Sodium (Enoxaparin Sodium 40 Mg/0.4 Ml Syringe) 40 mg SUBCUT Q24H [facility] Last Admin: 03/11/22 21:18 Dose: Not Given Documented By: RYAN Non-Admin Reason: Patient Refused Glucose (Glucose Gel 15 Gm Gel..Gram.) 15 gm PO Q15M PRN; Protocol PRN Reason: per Hypoglycemia Standing Ord. Ceftriaxone Sodium 1 gm/ (Sodium Chloride) 50 mls @ 100 mls/hr IV Q24H [facility] Last Infusion: 03/11/22 22:01 Dose: 0 mls/hr Documented By: RYAN Insulin Human Lispro (Insulin Lispro 100 Unit/Ml 3 Ml Vial) 0 unit SUBCUT QIDACHS [facility]; Protocol Last Admin: 03/12/22 12:50 Dose: Not Given Documented By: RAFI Non-Admin Reason: Patient Refused Morphine Sulfate (Morphine Sulfate 4 Mg/Ml Cartridge) 4 mg IVPUSH Q4H PRN; Protocol PRN Reason: Pain, Severe (Pain Scale 7-10) Pharmacy Consult (Consult Rx Perform Med Rec) 1 each MISCELLANE ONCE PRN PRN Reason: Consult order Prochlorperazine Edisylate (Prochlorperazine Edisylate 10 Mg/2 Ml Vial) 5 mg IVPUSH Q4H PRN PRN Reason: Nausea and Vomiting Last Admin: 03/12/22 11:16 Dose: 5 mg Documented By: RAFI Sodium Chloride (0.9 % Sodium Chloride Flush 3 Ml Syringe) 3 ml IVFLUSH [facility] Last Admin: 03/12/22 09:52 Dose: 3 ml Documented By: RAFI Labs CBC & Chem 7: 03/11/22 06:08 03/11/22 06:08 Labs: Laboratory Results - last 24 hr 03/11/22 20:20 POC Glucose 242 H Microbiology Microbiology Results: Microbiology 03/10/22 19:18 Blood Culture - Preliminary Blood - Venous Gram negative adonay 03/10/22 15:45 Urine Culture - Final Urine clean catch - Urine cao top Escherichia coli 03/10/22 19:18 Blood Culture - Preliminary Blood - Venous No growth after 24 hours. Assessment and Plan (1) Sepsis: Status: Acute (2) Pyelonephritis: Status: Acute (3) Hyperglycemia, unspecified: Status: Acute Plan 21-year-old with past medical history of asthma presents to the hospital with complaints of left kidney pain found to have acute pyelonephritis # sepsis due to acute pyelonephritis met sepsis criteria due to tachycardia and leukocytosis, persistent tachycardia, WBC trending down continue IV ceftriaxone day 3 urine culture lobito E coli, ESBL negative sensitive to ceftriaxone, blood cultures 1/2 positive for Gram-negative rods, follow final sensitivity # new onset diabetes mellitus, elevated blood sugars, patient refusing lab draws question insulin was is non insulin-dependent diabetes since known to be prediabetic for last few years, no family history of diabetes will obtain psych eval for fear of needles, will re-attempt lab draws at a.m. case discussed with mom at bedside, will place on metformin and recommend outpatient endocrinology for further workup will obtain nutrition consult, strongly recommend to follow diabetic diet, check hemoglobin A1c, average blood sugars # asthma mild intermittent - no exacerbation - monitor symptoms DVT prophylaxis: Lovenox patient will need continued continued in patient's stay due to acute pyelonephritis / sepsis requiring antibiotic waiting for final urine and blood cultures Quality Stroke Does the patient have a stroke diagnosis?: No VTE Prior VTE?: No VTE Risk Level:: Medical - moderate - high VTE Device Contraindication: Treatment Not Indicated VTE Drug Contraindication: N/A - Med Ordered
[2022-03-12] MEDS: metFORMIN HCl 500 MG TABLET PO (16:47)
[2022-03-12] MEDS: cefTRIAXone sodium 1 GM in 0.9 % Sodium Chloride 50 ML IV (20:59)
[2022-03-13 04:00] VITALS: BP 137/88; PULSE 91; RESP 16; TEMP 36.9; O2SAT 98
[2022-03-13 07:44] VITALS: BP 145/89; PULSE 93; RESP 20; TEMP 36.2; O2SAT 95
[2022-03-13] MEDS: Acetaminophen 325 MG TABLET 650 MG PO (08:31)
[2022-03-13] MEDS: 0.9 % Sodium Chloride Flush 3 ML SYRINGE IVFLUSH (08:31)
[2022-03-13] MEDS: metFORMIN HCl 500 MG TABLET PO (08:31)
[2022-03-13 11:43] VITALS: BP 145/80; PULSE 69; RESP 19; TEMP 36.1; O2SAT 99
--- NOTE | 2022-03-13 14:10 | PM.DS ---
DS: Providers Provider Date of Service: 03/13/22 Date of admission: 03/10/22 20:16 Primary care physician: Mai Parks CNP Consults: 03/12/22 16:03 Consult to Psychiatry Routine Consulting Provider: Tanja Schmid Reason for consultation: fear of needles Has provider been notified: No 03/13/22 12:36 Consult to Care Team Stat Comment: Reason for consultation: for fear of needles DS: Diagnosis Discharge Diagnosis (1) Sepsis: Status: Acute (2) Pyelonephritis: Status: Acute (3) Hyperglycemia, unspecified: Status: Acute DS: Summary Hospital Course Hospital Course: History of presenting illness Date of Service: 03/10/22 Chief Complaint: left kidney pain This is a 21-year-old female with past medical history of asthma presents to the hospital with complaints of left kidney pain.? Patient reports that her symptoms started about 3 days ago, associated with urinary frequency, no dysuria or urgency.? She has also had chills that started today, she has had nausea and vomiting.? No fever, no chest pain, no shortness of breath, no wheezing, no abdominal pain, no diarrhea constipation, and no lower extremity edema.? No headache or change in vision, no numbness tingling or weakness.? On arrival to the ED patient hemodynamically stable with a heart rate of 115 otherwise vitals within normal range Labs are significant for WBC count of 15.7, otherwise unremarkable UA is positive for nitrites, leukocyte Estrace, WBC CT of the abdomen shows acute pyelonephritis Patient started on IV antibiotics and will be admitted for further management Hospital course 21-year-old female patient with past medical history of asthma presents to the hospital with complaints of left kidney pain found to have sepsis due to acute pyelonephritis and noted to have tachycardia and leukocytosis, Patient admitted to medical floor treated with IV ceftriaxone urine culture and blood culture grew E coli, ESBL negative sensitive to ceftriaxone, patient responded to above treatment WBC trending down pain resolved patient is tolerating diet therefore being discharged home on total 14 day course of Ceftin. new onset diabetes mellitus, elevated blood sugars, patient refused lab draws question insulin vs non insulin-dependent diabetes, since known to be prediabetic for last few years likely insulin-dependent, no family history of diabetes Spoke with psych they recommend outpatient therapy for fear of needles, recommend outpatient Endocrinology follow-up with Dr. Mark, for further workup, patient declined blood draw, seen by jet piercer operator ayla swartz done . asthma mild intermittent no exacerbation noted Time Spent with Patient Time attestation: Total time spent providing and/or coordinating discharge services: Discharge coordination time: Greater than 30 minutes Quality: Safe Use of Opioids Does Pt have an Active Cancer Diagnosis on the Problem List?: No Quality: Stroke Does the patient have a stroke diagnosis?: No Physical Exam Vital Signs: Vital Signs: Last Vital Signs Temp 97.0 F 03/13/22 11:43 Pulse 69 03/13/22 11:43 Resp 19 03/13/22 11:43 BP 145/80 H 03/13/22 11:43 Pulse Ox 99 03/13/22 11:43 O2 Del Method 03/13/22 11:43 BMI result Body Mass Index 32.1 Const: Other: General? awake alert x3, no acute distress ? Neck no JVD. CVS? regular rate rhythm, Respiratory lungs clear to auscultation, no respiratory distress, no wheeze, no rhonchi. Gastrointestinal abdomen soft, nontender, bowel sounds audible, no guarding , no rigidity. Extremities no? edema. back no CVA tenderness Neuro nonfocal Skin no rash psych? anxious DS: Data Data Completed and Pending Labs on day of discharge: Preliminary micro results at discharge 03/10/22 19:18 Blood Culture - Preliminary Blood - Venous No growth after 48 hours. Discharge Plan Discharge Patient Disposition: Home Health Service Discharge Diagnosis: E coli bacteremia Sepsis due to acute pyelonephritis New onset diabetes mellitus Referrals: Mai Grissom CNP [Primary Care Provider] - 1 Week Physician,Unknown J [Physician] - 2 days Discharge Medications: New metformin 500 mg Tablet 500 mg PO BIDWM Qty: 60 0RF cefuroxime axetil 250 mg Tablet 250 mg PO Q12H Qty: 21 0RF Discharge Orders: Discharge Order (Routine); Ordered 03/13/22 Ordered By: Christiane Moreno Diet: Diabetic diet Activity on Discharge: As tolerated Stand Alone Forms: Patient Portal Discharge page Care Plan Goals: Acute pyelonephritis resolved take by mouth Ceftin 1 tablet twice daily for 11 days, elevated blood sugars diagnosed to have diabetes mellitus likely insulin-dependent, recommend outpatient follow-up with endocrinology at [facility] with Dr. Mark call to make an appointment, patient will need to follow strict diabetic diet monitor blood sugars patient has fear of needles therefore recommend out patient therapy Recommend blood sugar monitoring before meals and at bedtime, needs therapy for blood draws Health Concerns: Newly diagnosed diabetes recommend to follow diabetic diet, need close blood sugar monitoring, needs therapy for significant fear of needles Plan of Treatment: Outpatient follow-up with primary care physician, in 1-2 weeks outpatient follow-up with Dr. Mark from endocrinology call to make appointment Assessment: As per discharge summary Patient Instructions: Kidney Infection (ED), Acute Low Back Pain (ED)
--- NOTE | 2022-03-13 14:12 | MHC.CM.PN ---
PATIENT IS DC HOME WITH RECOMMENDATION FOR OUTPATIENT FOLLOW UP FOR ANXIETY AND HER DM MANAGEMENT. PATIENT AGREES TO THIS PLAN PATIENT REMINDED THAT SHE HAS BEEN AWARE OF THIS CONDITION FOR 3 YEARS AND POSSIBLY COULD USE SOME RECOMMENDATIONS FROM PCP WELL.
== END 2022-03-13 14:38 | disposition home health service (06) | DRG 720 ==
LOC: HO.ED 19:48 → HO.EDOVER 20:24 → HO.S3 03-11 08:51
PROVIDERS: Physician Assistant; Admitting Provider Internal Medicine; Emergency Provider Internal Medicine; PCP Nurse Practitioner Family; Visit Provider Hospitalist
DX: A41.9 Sepsis, unspecified organism (principal); E11.65 Type 2 diabetes mellitus with hyperglycemia; N10 Acute pyelonephritis; B96.20 Unspecified Escherichia coli [E. coli] as the cause of diseases classified elsewhere; J45.20 Mild intermittent asthma, uncomplicated; N20.0 Calculus of kidney; Z20.822 Contact with and (suspected) exposure to COVID-19
CPT/HCPCS: 36415; 74177; 80048; 80053; 81001; 81003; 82947; 83605; 83690; 83735; 84702; 85025; 87040; 87077; 87086; 87088; 87186; 87205; 87635; 99285; J0696; J1885; J1956; J2270; J2405; Q9967